=== PATIENT | male | born 1955 | race Caucasian/White ===

== ENCOUNTER 2020-12-14 18:18 | Emergency (ER) | payer OTHER, SELFPAY ==
[2020-12-14 18:20] VITALS: BP 142/90; PULSE 115; RESP 16; TEMP 36.8; O2SAT 98; BMI 18.3
[2020-12-14] MEDS: morphine 10 MG/ML Syringe 5 MG IM (19:07)
[2020-12-14] MEDS: Ondansetron ODT 4 MG Tablet PO (19:08)
--- NOTE | 2020-12-14 19:19 | RAD_ITS ---
INDICATION: back pain EXAMINATION/TECHNIQUE: X-RAY - XR Spine Lumbar 2 or 3 Views COMPARISON: None. FINDINGS: VERTEBRAE: Preserved vertebral body height. No fracture. No spondylolisthesis. Preservation of the normal lumbar lordosis. Moderate multilevel facet arthropathy. Partially visualized posterior fusion hardware at T10. DISCS: Moderate multilevel degenerative disease and spondylosis. INCLUDED ABDOMEN: Included bowel gas pattern is non-obstructive. RAD/Lumbar Spine 2 or 3 Views IMPRESSION: No evidence of lumbar spinal fracture or spondylolisthesis. Moderate multilevel degenerative disc disease and spondylosis. Electronically Signed: Omar Weinberg MD at 19:38 EDT Tel , Service support ,
--- NOTE | 2020-12-14 19:36 | EDS_ITS ---
HPI History of Present Illness Chief Complaint: Back Narrative Narrative: 65-year-old male presenting with back pain. He states is an acute on chronic issue. He has muscle relaxers at home. [facility] and has had [facility] previously. He states that these are just worn off and he is in between appointments. [facility]. Denies loss of bladder or bowel control denies urinary retention. Denies saddle paresthesia. Patient ambulatory. [facility] Medical History Back pain Emphysema lung Social History Smoking Status: Current every day smoker tobacco type: cigarettes ROS ROS ED Constitutional Constitutional ED: Denies chills, fever(s) or sweats Eyes Eyes: Denies blurry vision or change in vision ENT ENT ED: Denies ear pain or sore throat Cardiovascular Cardiovascular: Denies chest pain, palpitations or racing heartbeat Respiratory/Chest Respiratory/Chest: Denies cough, dyspnea or sputum Gastrointestinal Gastrointestinal: Denies abdominal pain, constipation, diarrhea, nausea or vomiting Genitourinary Genitourinary ED: Denies dysuria, hematuria or urinary frequency Musculoskeletal Musculoskeletal: Reports back pain; Denies arthralgias, myalgias or neck pain Integumentary Denies abscess, Abrasions or rash Neurologic Neurologic: Denies headache(s), paresthesias or weakness Psychiatric Psychiatric: Denies anxiety, depression, suicidal ideation or suicidal thoughts Endocrine Endocrinology: Denies polydipsia or polyuria EXAM Physical Exam Const Vital Signs: 12/14/20 18:20 Temperature 98.2 F Temperature Source Temporal Pulse Rate 115 H Respiratory Rate 16 Blood Pressure 142/90 H Blood Pressure Mean 107 Pulse Ox 98 Oxygen Delivery Method Room Air Positive well nourished and unkempt General Appearance ED: unkempt HEENT Negative for trauma Eyes PERRL Resp normal respiratory effort and clear to auscultation bilaterally Cardio regular rate and regular rhythm Back/Spine normal to inspection and no thoracic nor lumbar tenderness Back/Spine Narrative: Left lumbar paraspinal musculature tenderness. There is tenderness to palpation of left gluteal region. Neuro oriented x3 Sensorium / Orientation: alert Psych mental status grossly normal Appearance: unkempt Skin no rashes or lesions noted and no wounds MDM MDM MDM Narrative Medical decision making narrative: Presenting with acute on chronic back pain. I did obtain imaging of the lumbar spine which shows no acute fracture or subluxation. Patient does have multilevel degenerative changes on my interpretation. Radiologist does agree. Patient was given morphine IM as well as Zofran. His pain is well controlled. I did rehabilitation services counselor him that given his chronic nature of pain in his back he should [facility] who is been doing [facility]. I do not feel that he needs narcotics at this time. He does state that he has muscle relaxers at home and is feeling very comfortable currently. Impression: 1. Lumbar strain acute on chronic Radiography Diagnostic Testing: Radiology Impression Lumbar Spine X-Ray 12/14/20 19:19 IMPRESSION: No evidence of lumbar spinal fracture or spondylolisthesis. Moderate multilevel degenerative disc disease and spondylosis. Electronically Signed: Omar Weinberg MD at 19:38 EDT Tel , Service support , Discharge Plan Triage Chief Complaint: Back ED Provider: Mayur Briggs Dx/Rx/DC Orders Instructions: ED Back Sprain/Strain [facility] [[facility] Provider[facility] - Disposition Disposition: Home, Self Care
--- NOTE | 2020-12-14 20:20 | ED.RN ---
pt has discharge papers available. explained to pt that he need to have his ride here that he cant drive himself after having the morphine. pr insists that he is going to go smoke. ambulated out of department despite ratonales walked down the ramp to his care where he got his cigarettes and come back up the ramp to sit on the bench and wait for his sim. calling with not success at this time. pt refusing to come back into the ed but insists he will not drive self.
== END 2020-12-14 20:23 | disposition home or self-care (01) ==
PROVIDERS: Emergency Provider Student in an Organized Health Care Education/Training Program
DX: S39.012A Strain of muscle, fascia and tendon of lower back, initial encounter (principal); F17.210 Nicotine dependence, cigarettes, uncomplicated; X58.XXXA Exposure to other specified factors, initial encounter
CPT/HCPCS: 72100; 96372; 99282

== ENCOUNTER 2021-05-12 11:04 | Emergency (ER) | payer OTHER, SELFPAY ==
[2021-05-12 11:04] VITALS: BP 148/90; PULSE 102; RESP 16; TEMP 36.5; O2SAT 97; BMI 18.3
--- NOTE | 2021-05-12 11:37 | ED.VIS.BACK ---
HPI History of Present Illness Chief Complaint: Back Informant: patient Onset/Context/Timing Onset: Days (3) Context: Gradual Onset Injury: lifting Timing: Continuous Quality: Sharp and - (Stabbing) Location: Lumbar, Buttock and Left Leg Worsened by: improves with Movement and Ambulation Relieved by: Nothing Narrative Narrative: Patient presents with back pain that has been getting worse over the past 3 days. Patient states he was lifting a heavy tote and started having pain in his low back ever since. Patient states it goes down his left lower extremity. Patient describes the pain is sharp and stabbing. Patient states it is worse with certain movements. Patient states nothing seems to help. Patient states he has been unable to bear weight due to the pain in his back. Patient states the pain radiates into his abdomen. Patient denies any dysuria or hematuria. Patient denies any incontinence of stool or urine. [facility] Medical History (Updated 05/12/21 @ 13:[address] Ozzie Salcido DO) Back pain Emphysema lung Home Medications hydrocodone-acetaminophen 1 tab PO Q6H PRN PRN 3 Days #10 tablet 05/12/21 [Rx Last Taken Unknown] Allergy/AdvReac Type Severity Reaction Status Date / Time No Known Allergies Allergy Verified 05/12/21 11:09 Surgical History (Updated 05/12/21 @ 11:[address] Ozzie Salcido DO) History of lumbar fusion History of thoracic spinal fusion S/P cervical spinal fusion Social History Smoking Status: Current every day smoker tobacco type: cigarettes ROS ROS ED Constitutional Constitutional ED: Denies chills or fever(s) Eyes Eyes: Denies blurry vision or change in vision ENT ENT ED: Denies rhinorrhea or sore throat Cardiovascular Cardiovascular: Reports chest pain; Denies palpitations Respiratory/Chest Respiratory/Chest: Reports dyspnea; Denies cough Gastrointestinal Gastrointestinal: Reports nausea; Denies vomiting Genitourinary Genitourinary ED: Denies dysuria or hematuria Musculoskeletal Musculoskeletal: Reports back pain; Denies neck pain Integumentary Denies abscess or rash Neurologic Neurologic: Denies headache(s) or weakness Allergic/Immunologic Allergic/Immunologic ED: Denies mouth swelling or urticaria EXAM Physical Exam Const Vital Signs: 05/12/21 11:04 Temperature 97.7 F L Temperature Source Oral Pulse Rate 102 H Respiratory Rate 16 Blood Pressure 148/90 H Blood Pressure Mean 109 Pulse Ox 97 Oxygen Delivery Method Room Air Positive well nourished and well developed General Appearance ED: well developed HEENT Reports moist mucous membranes Neck supple and no JVD Back/Spine Back/Spine Narrative: There is tenderness over the lower lumbar spine and left paraspinal muscles. There is no bony crepitance or step-off. There is no edema or ecchymosis. Range of motion was limited in all motions of the lumbar spine secondary to pain. There is also some tenderness over the posterior aspect of the left hip and buttock area. Lumbar Spine / Lower Back: ROM limited and straight leg raise negative bilaterally Neuro oriented x3 and no sensory deficits noted Sensorium / Orientation: alert Motor Exam: strength 5/5 throughout Psych mental status grossly normal MDM MDM MDM Narrative Medical decision making narrative: Patient was given a dose of morphine here. X-rays of the lumbar spine were obtained. There are 3 views. On my interpretation, there are degenerative changes. There is no acute fracture or spondylolisthesis. Radiologist also interpreted the x-rays and agrees. X-rays of the pelvis were obtained. There is 1 view. On my interpretation, there is no acute fracture or dislocation. There are degenerative changes noted. Radiologist also interpreted the x-ray and agrees. Patient initially had some difficulty ambulating. However, with a walker he was able to ambulate better. Patient was given a prescription for a short course of [place]. Patient was instructed use ice to his low back. Patient was instructed to follow-up with his primary care physician in 3 to 5 days. Patient understood and was agreeable with the plan. All questions were answered. Radiography X-Ray: LS SPine, Read by ED Physician, Read by Radiologist, No Fracture, Normal Bony Alignment and DJD Diagnostic Testing: Clinical Impression(s) from Imaging Studies Lumbar Spine X-Ray 05/12/21 12:30 IMPRESSION: 1. No acute fracture or subluxation. 2. Mild dextroscoliosis with diffuse degenerative disc disease. Electronically Signed: Tony Fleming MD at 13:23 EST Tel , Service support , Pelvis X-Ray 05/12/21 12:30 IMPRESSION: Age consistent degenerative changes, no acute findings Electronically Signed: Callum Lau MD at 13:33 EST , Service support , Discharge Plan Triage Chief Complaint: Back ED Provider: Ozzie Salcido Dx/Rx/DC Orders Clinical Impression: Acute low back pain Instructions: ED Back Pain (Acute or Chronic) Prescriptions: New hydrocodone-acetaminophen [hydrocodone-acetaminophen] 1 TABLET tablet 1 tab PO Q6H PRN PRN (Reason: Pain) 3 Days Qty: 10 RF: 0 [facility] - 3-5 Days Disposition Disposition: Home, Self Care
--- NOTE | 2021-05-12 12:30 | RAD_ITS ---
STUDY: X-RAY - PELVIS REASON FOR EXAM: Male, 66 years old. Injury/Pain TECHNIQUE: One view of the pelvis was obtained. COMPARISON: None. FINDINGS: There is a non-specific bowel gas pattern. Normal visualized soft tissue structures. There is narrowing with cortical sclerosis and osteophyte formation of the sacroiliac joint consistent with degenerative osteoarthritic changes. Normal visualized bilateral superior and inferior pubic rami. Normal pubic symphysis. Normal ischial tuberosities. Normal visualized right femoral head. Normal right acetabulum. There is mild articular joint space narrowing of the right hip. Normal visualized left femoral head. Normal left acetabulum. There is mild articular joint space narrowing of the left hip. RAD/Pelvis 1 or 2 Views IMPRESSION: Age consistent degenerative changes, no acute findings Electronically Signed: Callum Lau MD at 13:33 EST , Service support ,
--- NOTE | 2021-05-12 12:30 | RAD_ITS ---
STUDY: X-RAY - LUMBAR SPINE REASON FOR EXAM: Male, 66 years old. Injury/Pain TECHNIQUE: 3 view(s) of the lumbar spine were obtained. COMPARISON: 12/14/2020 FINDINGS: Normal lumbar lordosis. Mild dextroscoliosis centered at L2/L3. There is a normal alignment of the vertebrae. There is multilevel endplate spondylosis of the lumbar vertebrae. There is multi-level degenerative disc disease with multi-level disc space narrowing. The soft tissue structures are unremarkable. RAD/Lumbar Spine 2 or 3 Views IMPRESSION: 1. No acute fracture or subluxation. 2. Mild dextroscoliosis with diffuse degenerative disc disease. Electronically Signed: Tony Fleming MD at 13:23 EST Tel , Service support ,
[2021-05-12] MEDS: Morphine 4 MG/ML Syringe IM (12:44)
== END 2021-05-12 15:36 | disposition home or self-care (01) ==
PROVIDERS: Emergency Provider Emergency Medicine; Visit Provider Emergency Medicine
DX: M54.50 Low back pain, unspecified (principal); F17.210 Nicotine dependence, cigarettes, uncomplicated
CPT/HCPCS: 72100; 72170; 96372; 99284

== ENCOUNTER 2021-06-17 09:32 | Outpatient (CLI) | payer OTHER, SELFPAY ==
--- NOTE | 2021-06-17 09:38 | US_ITS ---
STUDY: ABDOMINAL ULTRASOUND - RIGHT UPPER QUADRANT REASON FOR VISIT: Male, 66 years old ELEVATED LFT''S TECHNIQUE: Ultrasound evaluation of the right upper quadrant was performed with real-time and static brian-scale imaging. TECHNICAL QUALITY: Adequate. COMPARISON: None. FINDINGS: Liver: The liver measures 17.3 cm. There is normal echogenicity of the liver. The bile ducts are within normal limits. There is hepatic color flow. The direction of portal flow is hepatopetal. There is no demonstrated mass lesion. Gallbladder: Normal distended gallbladder. The gallbladder wall measures 2 mm. There is a negative sonographic Lopez''s sign. There is no pericholecystic fluid. There are no gallstones. Common Bile Duct (C.B.D.): The common bile duct measures 3 mm. Pancreas: Normal size of the head, body and tail of the pancreas. There is normal echogenicity of the pancreas. There is no demonstrated pancreatic mass or cyst. Right Kidney: Normal size of the right kidney. The right kidney measures 10.9 cm x 5.5 cm x 4.2 cm. Normal renal cortex. The right cortex measures 1.2 cm. There is no demonstrated renal mass or cyst. There is no right hydronephrosis. US/Abdomen Limited IMPRESSION: Normal right upper quadrant ultrasound examination. Electronically Signed: Marlon Rothman MD at 14:43 EST ,
== END 2021-06-17 23:59 | disposition home or self-care (01) ==
PROVIDERS: Referring Provider Nurse Practitioner; Visit Provider Nurse Practitioner
DX: F10.10 Alcohol abuse, uncomplicated (principal); R79.89 Other specified abnormal findings of blood chemistry; R53.1 Weakness
CPT/HCPCS: 76705

== ENCOUNTER 2021-09-03 16:01 | Inpatient (IN) | payer OTHER, SELFPAY ==
[2021-09-03] VITALS (12 sets, daily range): BP systolic 84–120; BP diastolic 63–107; PULSE 109–166; RESP 16–38; TEMP 35.8–36.7; O2SAT 96–100; BMI 16.9; BMI 17.2
--- NOTE | 2021-09-03 16:28 | EKG12_ITS ---
Test Reason : CP Blood Pressure : / mmHG Vent. Rate : 146 BPM Atrial Rate : 146 BPM P-R Int : 128 ms QRS Dur : 136 ms QT Int : 320 ms P-R-T Axes : 000 -15 068 degrees QTc Int : 498 ms Wide complex tachycardia: Consider Atrial Flutter with 2:1 AV conduction Right bundle branch block Abnormal ECG Confirmed by DILMA HOLDER, ABE ([id number]), editor managing newspaper MARCY MILLER ([id number]) on 09/05/2021 10:12:44 AM Referred By: Confirmed By:ABE PERERA MD
--- NOTE | 2021-09-03 16:28 | RAD_ITS ---
STUDY: X-RAY XR Forearm 2 Views REASON FOR EXAM: Male, 66 years old. PAIN TECHNIQUE: XR Forearm 2 Views COMPARISON: None. FINDINGS: There is no demonstrated soft tissue swelling. Normal visualized radius. Normal visualized ulna. RAD/Forearm 2 Views IMPRESSION: Normal x-ray examination of the radius and ulna. Electronically Signed: Alin Mitchell MD at 17:13 EDT ,
--- NOTE | 2021-09-03 16:30 | EKG12_ITS ---
Test Reason : TACHYCARDIA Blood Pressure : / mmHG Vent. Rate : 114 BPM Atrial Rate : 114 BPM P-R Int : 156 ms QRS Dur : 146 ms QT Int : 340 ms P-R-T Axes : 046 068 068 degrees QTc Int : 468 ms Sinus tachycardia with Premature atrial complexes Right bundle branch block Abnormal ECG Confirmed by DILMA HOLDER, ABE ([id number]), film or videotape editor MARCY MILLER ([id number]) on 09/05/2021 10:13:04 AM Referred By: LALA Confirmed By:ABE PERERA MD
--- NOTE | 2021-09-03 16:31 | EDS_ITS ---
HPI History of Present Illness Chief Complaint: Dizziness Detail of Chief Complaint: Also right forearm pain. Informant: patient Onset/Context/Timing Onset: Yesterday Context: Sudden Onset Timing: Continuous Current Severity: Mild Maximum Severity: Moderate Narrative Narrative: 66-year-old male history of COPD, feet neuropathy prior stroke left- sided weakness. He denies any cardiac disease or stents. No bypass. States yesterday was outside with his dog is a great [place] and saw a squirrel pulled him pulled the leash and he went down injuring his right forearm. He has not been evaluated for this until today. He also states has been having intermittent lightheadedness. Denies any chest pain. Said he has not had any episodes where he is passed out. Prior similar symptoms: No Recent Illness/Hospitalization: No PFSH PFSH Medical History Alcohol abuse Back pain COPD (chronic obstructive pulmonary disease) HLD (hyperlipidemia) Stroke/cerebrovascular accident Tobacco use Home Medications hydrocodone-acetaminophen 1 tab PO Q6H PRN PRN 3 Days #10 tablet 05/12/21 [Rx Last Taken Unknown] Allergy/AdvReac Type Severity Reaction Status Date / Time No Known Allergies Allergy Verified 09/03/21 16:04 Family History (Updated 09/03/21 @ 18:[address] Miranda Nichols MD) Mother Heart disease Hypertension Father Heart disease Hypertension Family History unable to obtain Surgical History (Updated 09/03/21 @ 18:[address] Miranda Nichols MD) History of lumbar fusion History of thoracic spinal fusion Hx of tonsillectomy S/P cervical spinal fusion Social History (Updated 09/03/21 @ 18:[address] Miranda Nichols MD) household members: none Smoking Status: Current every day smoker tobacco type: cigarettes Smoking packs per day: 0.5 Smoking cigarettes per day: 10.0 alcohol intake: current alcohol intake frequency: 3 or more drinks per day details: 1/2 pint whiskey daily. substance use type: marijuana and other details: Patient vapes CBD ROS ROS ED ROS Narrative Lightheadedness. Fall with right forearm pain. Review of Systems ROS Unobtainable: Denies due to encephalopathy Constitutional Constitutional ED: Denies fever(s) Eyes Eyes: Denies change in vision ENT ENT ED: Denies ear pain Cardiovascular Cardiovascular: Reports palpitations and racing heartbeat; Denies chest pain Respiratory/Chest Respiratory/Chest: Denies cough or dyspnea Gastrointestinal Gastrointestinal: Denies abdominal pain, diarrhea, nausea or vomiting Genitourinary Genitourinary ED: Denies dysuria Musculoskeletal Musculoskeletal: Denies myalgias Integumentary Denies rash Neurologic Neurologic: Denies headache(s) Psychiatric Psychiatric: Denies depression Endocrine Endocrinology: Denies polyuria Allergic/Immunologic Allergic/Immunologic ED: Denies urticaria EXAM Physical Exam Narrative Exam Narrative: 61-year-old male no acute distress vital signs stable afebrile. Initial blood pressure 120/107. This tachycardia 144. On the monitor it appears to be a sinus tachycardia rate of 146 with a right bundle branch block. There is a wide-complex tachycardia. This could be A. fib or flutter. It is less likely to be like a slow V. tach. H EENT exam unremarkable. Neck nontender. Lungs clear to auscultation. Tachycardia rate about 145 on the monitor. Appears to be regular. No murmur appreciated. Chest were nontender. Abdomen soft nontender. Moving all 4 extremities. He has abrasions to the dorsum of his right forearm no deformity but his entire right forearm is tender. He can flex and extend the elbow and the wrist. He has normal pc tech strength and radial pulse of his right hand. Shoulder is nontender. Left upper and both lower extremities are nontender. Back nontender. Neurologically is awake and alert. He has weakness on the left side subtly compared to the right from a prior stroke. Const Vital Signs: 09/03/21 16:02 09/03/21 16:36 09/03/21 16:37 Temperature 96.5 F L Temperature Source Temporal Pulse Rate 144 H Respiratory Rate 20 H Respiratory Effort Normal Respiratory Pattern Normal Blood Pressure 120/107 H Blood Pressure Mean 111 Pulse Ox Oxygen Delivery Method Room Air Room Air 09/03/21 17:13 09/03/21 18:00 Temperature Temperature Source Pulse Rate 166 H 129 H Respiratory Rate 23 H 22 H Respiratory Effort Respiratory Pattern Blood Pressure 84/64 L 106/75 Blood Pressure Mean 70 85 Pulse Ox 96 97 Oxygen Delivery Method Room Air Room Air Positive well nourished and well developed; Negative for obese, cachectic, contractures or unkempt General Appearance ED: well developed and NAD; Negative for unkempt, cachectic, contractures, cyanotic or diaphoretic Nutritional Appearance: Negative for cachectic or obese HEENT Reports moist mucous membranes Negative for trauma or tenderness Eyes PERRL and EOMs intact bilaterally Neck no lymphadenopathy, supple and no JVD General: Negative for tenderness Chest Wall inspection of chest normal and palpation of chest normal Resp normal respiratory effort and clear to auscultation bilaterally Auscultation: Negative for rales, rhonchi or wheezes Cardio regular rhythm and no murmurs; Negative for regular rate Rate: tachycardic GI normal to inspection, nondistended, normoactive bowel sounds, non-tender, non- distended and no masses Auscultation: normoactive bowel sounds Palpation: soft; Negative for tender, guarding or rebound tenderness present Back/Spine no CVA tenderness General Back: Negative for CVA tenderness Extremity normal to inspection General Extremety ED: Negative for edema or tenderness General Extremity: Negative for edema Neuro oriented x3, CN's II-XII intact bilaterally and No no sensory deficits noted Neuro Narrative: Left-sided weakness. Mild from prior stroke. Sensorium / Orientation: alert Motor Exam: strength abnormal; Negative for strength 5/5 throughout Psych mental status grossly normal Appearance: Negative for unkempt Mood & Affect: Negative for depressed or tearful Skin no rashes or lesions noted and No no wounds Skin Narrative: Abrasions dorsum right forearm. MDM MDM MDM Narrative Medical decision making narrative: 86-year-old male fall complaining of right forearm pain which will x-ray. There is no deformity. My bigger concern is patient presents a tachycardia around 144 that could be new onset atrial flutter or A. fib or SVT or even slow V. tach. He will be given Identicard to see if we can better identify the rhythm. He has no history of any abnormal cardiac rhythm. EKG is most likely atrial flutter with interventricular conduction delay. I did discuss this with the junior underwriter who reviewed EKG also. I attempted to cardiovert the patient and with sedating him with etomidate. He was initially cardioverted with 300 J and then 360 with really no change whatsoever. He tolerated procedure well. His vital signs remained stable on any has had episodes of hypotension. He is receiving a liter of IV fluids and if his pressures above 100 I am to give him Cardizem IV 20 mg slow push. He is going to be admitted to the PCU this is all been discussed with the hospitalist. Lab Data Attestation: I reviewed the patient's lab results. Lab results narrative: CBC shows a white count of 15. H&H of 15 and 45. Platelets 163. PT/INR 14 and 1. Sodium 128. Gap of 18 BUN and creatinine of 41 and 1.72. Troponin slightly elevated at 92. Labs: Laboratory Results - last 24 hr 09/03/21 09/03/21 09/03/21 16:10 16:10 16:10 WBC 15.0 H RBC 4.37 L Hgb 15.9 Hct 45.3 MCV 103.7 H MCH 36.4 H MCHC 35.1 RDW Std Deviation 56.7 H RDW Coeff of Jesse 14.8 H Plt Count 163 MPV 11.8 Immature Gran % (Auto) [employer] Neut % (Auto) [employer] Lymph % (Auto) [employer] [place] % (Auto) [employer] Eos % (Auto) [employer] Baso % (Auto) [employer] Absolute Neuts (auto) 12.2 H Absolute Lymphs (auto) 1.35 Total Counted [employer] Neutrophils % (Manual) 32 L Band Neutrophils % 49 H Lymphocytes % (Manual) 9 L Monocytes % (Manual) 5 Metamyelocytes % 5 H Nucleated RBC % [employer] Diff Path Review May foll Platelet Estimate ADEQUATE RBC Morphology NORM C+C PT 14.5 INR 1.2 Sodium 128 L Potassium 4.0 Chloride 90 L Carbon Dioxide 20.0 L Anion Gap 18 H BUN 41 H Creatinine 1.72 H Estim Creat Clear Calc 34.34 Est GFR (MDRD) Af Amer 52 L Est GFR (MDRD) Non-Af 43 L BUN/Creatinine Ratio 23.8 H Glucose 113 H Calcium 9.4 Troponin I High Sens 09/03/21 16:10 WBC RBC Hgb Hct MCV MCH MCHC RDW Std Deviation RDW Coeff of Jesse Plt Count MPV Immature Gran % (Auto) Neut % (Auto) Lymph % (Auto) [place] % (Auto) Eos % (Auto) Baso % (Auto) Absolute Neuts (auto) Absolute Lymphs (auto) Total Counted Neutrophils % (Manual) Band Neutrophils % Lymphocytes % (Manual) Monocytes % (Manual) Metamyelocytes % Nucleated RBC % Diff Path Review Platelet Estimate RBC Morphology PT INR Sodium Potassium Chloride Carbon Dioxide Anion Gap BUN Creatinine Estim Creat Clear Calc Est GFR (MDRD) Af Amer Est GFR (MDRD) Non-Af BUN/Creatinine Ratio Glucose Calcium Troponin I High Sens 92 H Radiography Chest X-Ray - ED: 1 View Diagnostic Testing: Clinical Impression(s) from Imaging Studies Forearm X-Ray 09/03/21 16:28 IMPRESSION: Normal x-ray examination of the radius and ulna. Electronically Signed: lAin Mitchell MD at 17:13 EDT , Chest X-Ray 09/03/21 16:42 IMPRESSION: There are no acute findings. Electronically Signed: Alin Mitchell MD at 17:15 EDT , Right forearm x-ray 2 views interpreted myself and radiologist shows no acute abnormality. Chest x-ray portable, single view, interpreted myself and radiology shows no acute abnormalities. Normal cardiac silhouette. Rhythm Strip Rhythm Strip: Tachycardia Rate: 146 Ectopy: None EKG Initial EKG: Attestation: I personally reviewed and interpreted this EKG as follows: Interpretation: No Acute Injury Pattern Comments: Tachycardia with a right bundle branch block. Could be a possible atrial flutter or fib with a right bundle branch block. No old EKG available. Critical Care Time Critical Care Time: Yes Critical care time (excluding procedures): 30-74 minutes, Including time spent:, Discussing w/Patient &/or Family/Punchboard Stuffer, Discussing w/Consultants, Arranging Admission or Transfer, Performing Direct Patient Care at Bedside and - (33 min) Discharge Plan Dx/Rx/DC Orders Clinical Impression: Fall, Contusion of forearm, right, Tachycardia, Acute hypotension, Atrial flutter with rapid ventricular response Disposition Disposition: [facility]
[2021-09-03] MEDS: Adenosine 6 MG/2 ML Syringe IV (16:41)
--- NOTE | 2021-09-03 16:42 | RAD_ITS ---
STUDY: X-RAY CHEST REASON FOR EXAM: Male, 66 years old. CHEST PAIN chest pain TECHNIQUE: XR Chest 1 View COMPARISON: Prior comparison studies are not available for review at this time. FINDINGS: There is no demonstrated pleural abnormality. There is a left sided electronic device. Cervical spinal fusion hardware placement. Thoracic spinal fusion hardware. Normal size heart. Normal mediastinum and agustina. Normal visualized pulmonary arteries. There is atherosclerotic calcification of the aortic arch with tortuosity. There are diffuse degenerative changes of the visualized thoracic spine. There is degenerative osteoarthritis of the bilateral shoulders. There is no demonstrated abnormality of the visualized soft tissue structures of the upper abdomen. RAD/Chest 1 View (Portable) IMPRESSION: There are no acute findings. Electronically Signed: Alin Mitchell MD at 17:15 EDT ,
[2021-09-03 17:09] LABS: Hematocrit 45.3 % (40-54); Hemoglobin 15.9 g/dL (13.0-16.5); Mean Corp Hgb Conc 35.1 g/dL (32-36); Mean Corpuscular Hgb 36.4 pg (27.0-32.0); Mean Corpuscular Volume 103.7 fL (80-94); Mean Platelet Vol. 11.8 fl (6.2-12.0); POSITIVE DIFFERENTIAL YES; POSITIVE MORPHOLOGY YES; Platelet Count 163 K/mm3 (150-450); RBC Distribution Width CV 14.8 % (11.6-14.6); RBC Distribution Width SD 56.7 fl (35.1-43.9); Red Blood Count 4.37 M/mm3 (4.6-6.2)
[2021-09-03 17:13] LABS: International Normalized Ratio 1.2; Prothrombin Time (Protime)PT. 14.5 SECONDS (11.7-14.9)
[2021-09-03 17:15] LABS: Anion Gap 18 (5-15); BUN 41 mg/dL (7-18); BUN/Creat Ratio 23.8 RATIO (10-20); Calcium,Total 9.4 mg/dL (8.5-10.1); Chloride 90 mmol/L (98-107); Creatinine, Serum 1.72 mg/dL (0.70-1.30); EST Glomerular Filtration Rate 43 mL/min (>60); Est Glom Filt Rate - Afr Amer 52 mL/min (>60); Estimated Creatinine Clearance 34.34 ml/min; Glucose 113 mg/dL (74-106); Sodium Level 128 mmol/L (136-145)
[2021-09-03 17:26] LABS: Troponin-I HS (w/2H Reflex) 92 pg/mL (3.0-78.0)
--- NOTE | 2021-09-03 17:57 | PCM.HP.STD ---
Documented by User: WENDY Mendes 09/03/21 18:26 HPI - General General Date of Admission: 09/03/21 Date of Service: 09/03/21 Chief Complaint: Presyncope HPI Narrative NNEKA TIRADO, is a 66 M who presents with complaints of lightheadedness but denies any syncope. Patient reports that he had a stroke approximately 6 months ago and has had some left-sided weakness since but is otherwise felt fine until the past couple of weeks. Patient follows with [facility] [place] and is currently undergoing a 14-day Holter monitor as follow-up testing for his stroke. Patient reports that he has a history of high cholesterol and knows that he is on some medication for my heart but I do not know what it is or why I am on it. Patient reports many back surgeries as his only surgical history. In the ER patient is noted to be in atrial flutter with an accelerated rate in the 120s as well as slightly hypotensive however this is responded well to fluid boluses. PFSH Medical History Alcohol abuse Back pain COPD (chronic obstructive pulmonary disease) HLD (hyperlipidemia) Stroke/cerebrovascular accident Tobacco use Home Medications hydrocodone-acetaminophen 1 tab PO Q6H PRN PRN 3 Days #10 tablet 05/12/21 [Rx Last Taken Unknown] Allergy/AdvReac Type Severity Reaction Status Date / Time No Known Allergies Allergy Verified 09/03/21 16:04 Family History (Updated 09/03/21 @ 18:[address] Miranda Nichols MD) Mother Heart disease Hypertension Father Heart disease Hypertension Family History unable to obtain unable to obtain (Patient is unaware of family history) Surgical History (Updated 09/03/21 @ 18:[address] Miranda Nichols MD) History of lumbar fusion History of thoracic spinal fusion Hx of tonsillectomy S/P cervical spinal fusion Social History (Updated 09/03/21 @ 18:[address] Miranda Nichols MD) household members: none Smoking Status: Current every day smoker tobacco type: cigarettes Smoking packs per day: 0.5 Smoking cigarettes per day: 10.0 alcohol intake: current alcohol intake frequency: 3 or more drinks per day details: 1/2 pint whiskey daily. substance use type: marijuana and other details: Patient vapes CBD ROS Constitutional Constitutional: Denies anorexia, chills, fatigue, fever(s), malaise or weakness Cardiovascular Cardiovascular: Reports arrhythmia on telemetry, dizziness, lightheadedness and syncope; Denies chest pain, edema or palpitations Respiratory/Chest Respiratory/Chest: Denies cough, shortness of breath at rest, shortness of breath with exertion or wheezing Gastrointestinal Gastrointestinal: Denies abdominal pain, constipation, diarrhea, nausea or vomiting Genitourinary Genitourinary: Denies dysuria Musculoskeletal Musculoskeletal: Denies back pain, extremity pain, joint pain, joint stiffness or joint swelling Integumentary Integumentary: Denies dry skin Neurologic Neurologic: Denies abnormal gait, abnormal speech, confusion or dizziness Psychiatric Psychiatric: Denies anxiety or depression Endocrine Endocrinology: Denies change in body appearance Hematologic/Lymphatic Hematologic/Lymphatic: Denies anemia or easy bleeding Vital Signs Vital Signs Vital Signs: 09/03/21 16:02 09/03/21 16:36 09/03/21 16:37 Temperature 96.5 F L Temperature Source Temporal Pulse Rate 144 H Respiratory Rate 20 H Respiratory Effort Normal Respiratory Pattern Normal Blood Pressure 120/107 H Blood Pressure Mean 111 Pulse Ox Oxygen Delivery Method Room Air Room Air 09/03/21 17:13 Temperature Temperature Source Pulse Rate 166 H Respiratory Rate 23 H Respiratory Effort Respiratory Pattern Blood Pressure 84/64 L Blood Pressure Mean 70 Pulse Ox 96 Oxygen Delivery Method Room Air Weight Weight: 125 lb 0.034 oz Body Mass Index (BMI) 16.9 Physical Exam Const alert, oriented x3 and no apparent distress General Appearance: cooperative HEENT normocephalic and head/scalp atraumatic Eyes conjunctivae normal and no scleral icterus Neck supple and thyroid normal General: trachea midline Resp normal respiratory effort and normal air movement Auscultation: diminished lung sounds Cardio S1 normal heart sound, S2 normal heart sound and peripheral pulses 2+ throughout Rate: tachycardic Rhythm: abnormal rhythm regularly irregular GI normal to inspection, nondistended, normoactive bowel sounds, soft to palpation and non-tender Extremity normal capillary refill and no clubbing, cyanosis or edema General Extremity: no tenderness to palpation of joints or extremities Skin General Skin Exam: no breakdown and turgor normal Lesions: no lesions Rashes: no rashes Neuro no focal motor deficits and no sensory deficits noted Motor Exam: Negative for general weakness Psych thought process normal, cooperative and affect normal Appearance: appropriate Results Lab / Micro Data Result Diagrams: 09/03/21 16:10 09/03/21 16:10 Labs: Laboratory Results - last 24 hr 09/03/21 16:10: WBC 15.0 H, RBC 4.37 L, Hgb 15.9, Hct 45.3, MCV 103.7 H, MCH 36.4 H, MCHC 35.1, RDW Std Deviation 56.7 H, RDW Coeff of Jesse 14.8 H, Plt Count 163, MPV 11.8, Immature Gran % (Auto) 0.700, Neut % (Auto) 94.1 H, Lymph % (Auto) 2.3 L, [place] % (Auto) 2.7, Eos % (Auto) 0.1, Baso % (Auto) 0.1, Absolute Neuts (auto) 14.1 H, Absolute Lymphs (auto) 0.35 L, Nucleated RBC % 0 09/03/21 16:10: Sodium 128 L, Potassium 4.0, Chloride 90 L, Carbon Dioxide 20.0 L, Anion Gap 18 H, BUN 41 H, Creatinine 1.72 H, Estim Creat Clear Calc 34.34, Est GFR (MDRD) Af Amer 52 L, Est GFR (MDRD) Non-Af 43 L, BUN/Creatinine Ratio 23.8 H, Glucose 113 H, Calcium 9.4 09/03/21 16:10: PT 14.5, INR 1.2 09/03/21 16:10: Troponin I High Sens 92 H Rhythm Strip Rhythm Strip: Tachycardia Rate: 146 Ectopy: None Radiology Impression Forearm X-Ray 09/03/21 16:28 IMPRESSION: Normal x-ray examination of the radius and ulna. Electronically Signed: Alin Mitchell MD at 17:13 EDT , Chest X-Ray 09/03/21 16:42 IMPRESSION: There are no acute findings. Electronically Signed: Alin Mitchell MD at 17:15 EDT , Assessment & Plan Assessment/Plan (1) Atrial flutter with rapid ventricular response: (2) Acute hypotension: PLAN: 1. Atrial flutter with RVR with right bundle branch block -Admit to PCU -Maintain patient's outpatient Holter monitor -Trend cardiac enzymes initial level of 92 -Cardiac diet -Daily weights -Patient was given adenosine 6 mg IV x1 without improvement of rate or symptoms. Patient will undergo cardioversion attempt in ER -PT and OT to eval -CBC, CMP, magnesium, phosphorus, TSH ordered for a.m. -Echocardiogram ordered for a.m. -We will order appropriate medications as needed following results of cardioversion -We will initiate patient on Eliquis and aspirin 2. Hyponatremia -Normal saline ordered in ER and will continue -Repeat CMP in a.m. 3. Acute kidney injury versus chronic kidney disease -Patient states that he thinks his kidney function is fine -Will trend CMP -Normal saline ordered 4. Hyperlipidemia -Initiated patient on atorvastatin, patient unaware of what medications he takes at home 5. Substance abuse -Patient reports that he drinks half of a pint of whiskey per day -We will check hepatic panel -thiamine, folic acid, multivitamin ordered 6. Tobacco abuse -Patient reports that he continues to smoke half pack per day -Inpatient smoking cessation ordered 7. COPD -Continue albuterol as needed nebulizer treatments as well as scheduled budesonide -Encourage incentive spirometry DVT prophylaxis-initiated on Eliquis for atrial flutter This patient was seen by Sandie York NP-C under the supervision of Dr. Nichols. 32 minutes spent in clinical coordination of patient's plan of care. Documented by User: Dr. Miranda Nichols MD 09/03/21 18:29 PFSH Medical History Alcohol abuse Back pain COPD (chronic obstructive pulmonary disease) HLD (hyperlipidemia) Stroke/cerebrovascular accident Tobacco use Home Medications hydrocodone-acetaminophen 1 tab PO Q6H PRN PRN 3 Days #10 tablet 05/12/21 [Rx Last Taken Unknown] Allergy/AdvReac Type Severity Reaction Status Date / Time No Known Allergies Allergy Verified 09/03/21 16:04 Family History (Updated 09/03/21 @ 18:[address] Miranda Nichols MD) Mother Heart disease Hypertension Father Heart disease Hypertension Family History unable to obtain Surgical History (Updated 09/03/21 @ 18:[address] Miranda Nichols MD) History of lumbar fusion History of thoracic spinal fusion Hx of tonsillectomy S/P cervical spinal fusion Social History (Updated 09/03/21 @ 18:[address] Miranda Nichols MD) household members: none Smoking Status: Current every day smoker tobacco type: cigarettes Smoking packs per day: 0.5 Smoking cigarettes per day: 10.0 alcohol intake: current alcohol intake frequency: 3 or more drinks per day details: 1/2 pint whiskey daily. substance use type: marijuana and other details: Patient vapes CBD Results Lab / Micro Data Result Diagrams: 09/03/21 16:10 09/03/21 16:10
[2021-09-03 17:59] LABS: Lymphocyte 9 % (19-41); Metamyelocyte 5 % (0-1); Monocyte 5 % (0-10); Neutrophil-Band 49 % (0-5); Neutrophil-Segmented 32 % (47-70)
[2021-09-03 18:00] LABS: Platelet Estimate ADEQUATE (ADEQ); Red Cell Morphology NORM C+C NORMAL (NORM C&C)
[2021-09-03 18:02] LABS: Differential Indicated MANUAL DIFF
[2021-09-03 18:04] LABS: Absolute Neutrophil Count 12.2 X10^3/uL (2.0-7.7)
[2021-09-03 18:05] LABS: Absolute Lymphocyte Count 1.35 X10^3/uL (0.83-4.51)
[2021-09-03] MEDS: Etomidate 20 MG/10 ML Vial IV (18:32)
[2021-09-03 18:49] LABS: AST(SGOT) 60 U/L (15-37); Alanine Aminotransfer ALT/SGPT 38 U/L (16-61); Albumin, Serum 2.8 g/dL (3.2-5.0); Alkaline Phosphatase 56 U/L (45-117); Bilirubin, Direct 0.35 mg/dL (0.00-0.30); Globulin 4.4 g/dL (2.2-4.2); Protein, Total 7.2 g/dL (6.4-8.2); Reflex Troponin-HS? (from REC) Y
[2021-09-03] MEDS: dilTIAZem 25 MG/5 ML Vial 20 MG IV BOLUS (18:56)
[2021-09-03 19:52] LABS: Troponin-I HS 214 pg/mL (3.0-78.0)
[2021-09-03] MEDS: 0.9% Normal Saline 1,000 ML 125 ML IV (19:52)
[2021-09-03] MEDS: Budesonide Respules 0.5 MG/2 ML AMPUL.NEB. INHALATION (20:30)
--- NOTE | 2021-09-03 20:31 | EKG12_ITS ---
Test Reason : Blood Pressure : / mmHG Vent. Rate : 125 BPM Atrial Rate : 125 BPM P-R Int : 160 ms QRS Dur : 132 ms QT Int : 322 ms P-R-T Axes : 079 053 058 degrees QTc Int : 464 ms Sinus tachycardia with Premature atrial complexes Right bundle branch block Abnormal ECG Confirmed by DILMA HOLDER, ABE ([id number]), continuity editor MARCY MILLER ([id number]) on 09/05/2021 10:36:02 AM Referred By: KENY Confirmed By:ABE PERERA MD
--- NOTE | 2021-09-03 20:58 | PCM.CONS.C ---
Assessment & Plan Assessment/Plan (1) Atrial flutter with rapid ventricular response: PLAN: The patient was found to have a wide-complex tachycardia. Based upon evaluation there was concern this was atrial flutter with 2 1 AV conduction with an underlying right bundle branch block pattern. The patient has been treated medically as described above. At the present time based upon the patient's cardiac rhythm strip it appears that he may be remaining in an underlying sinus rhythm/sinus tachycardia with frequent PACs. At the moment he should continue rate control therapy. Consideration could be given to the addition of antiarrhythmic therapy and attempt to maintain sinus rhythm. He should also be considered for anticoagulant therapy to minimize the risk of cardiac dysrhythmia related thromboembolic disease especially in light of his history of CVA unless otherwise contraindicated. With respect to antiarrhythmic therapy it may be reasonable to consider based upon the patient's unknown cardiovascular status at this time agents such as amiodarone therapy unless otherwise contraindicated. The patient should also discontinue his tobacco intake as well as his alcohol intake which potentially could be contributing factors to his overall cardiovascular conditions including his atrial dysrhythmia. (2) Abnormal cardiac enzyme level: PLAN: The patient does have abnormal cardiac enzyme levels which may represent a type II event secondary to his tachycardia and his synchronized biphasic DC cardioversion. However be reasonable to further evaluate the patient for other underlying cardiovascular disease. This would include a transthoracic echocardiogram to evaluate left ventricular wall motion and systolic function. It would also include a pharmacologic stress nuclear imaging study to evaluate for any obvious evidence of myocardial ischemia that would warrant further evaluation and care. (3) HLD (hyperlipidemia): PLAN: The patient states he has a history of hyperlipidemia and does take lipid-lowering medication. He is unclear as to which medication he takes. It appears based upon his overall condition to be reasonable to not only evaluate his lipids but consider lipid-lowering therapy with a statin. (4) CVA (cerebral vascular accident): PLAN: The patient has a report of a CVA. He is currently wearing a [facility] event monitor. An attempt will be made to retrieve additional information from the event monitor which may help with his overall evaluation and care. However, noting that it appears he has an underlying atrial dysrhythmia that could be a thromboembolic generator, it is reasonable to continue his medical management as described above. (5) COPD (chronic obstructive pulmonary disease): PLAN: The patient has a history of COPD. He has been counseled on the need to discontinue his tobacco intake. Addt'l Comments The patient will also be evaluated by utilization review/social media director with respect to the need, as the [facility] patient, to be transferred to the [facility] for additional evaluation and care. The patient's case has been discussed and reviewed with the patient and Dr. Kennedy from the [facility] emergency department staff. This note was generated using a voice recognition system and there may be incorrect words, spelling or punctuation that were not noted when reviewing the office note prior to saving. HPI Consult Data Date of Consult: 09/03/21 HPI Narrative HPI Narrative: NNEKA TIRADO, is a 66 year old white male who presents for vascular consultation based upon concerns of an underlying tachycardia appearing compatible with an underlying atrial flutter with 2 1 AV conduction with an underlying right bundle branch block pattern superimposed upon a history of previous CVA. The patient states he was evaluated at the [facility] earlier this year for concerns of a CVA. He states recently, as part of his evaluation, he received a 14-day event monitor to wear-which she is currently wearing as part of his ongoing evaluation. He states he may have felt somewhat lightheaded but did not lose consciousness. He subsequently experienced a fall with concern of right upper extremity discomfort. He states this occurred as he was pulled over by his dog. He subsequently presented to the emergency department for evaluation of his right upper extremity. He was noted to have an elevated heart rate and on ECG appeared to have an underlying wide-complex tachycardia which appeared concerning for an underlying atrial flutter with a 2-1 AV conduction with a right bundle branch block pattern. He underwent additional evaluation in the emergency department. He was treated with IV adenosine and attempt to help identify and interrupt his tachycardia. However this was reported as unsuccessful. As he was noted to be hypotensive he subsequently underwent further evaluation/therapy with synchronized biphasic DC cardioversion. This was reported as 300 J x 1 and then 360 J x 1 with continued concerns of his underlying tacky dysrhythmia. He was then treated with additional medical therapy with IV fluids and IV diltiazem. He was then transferred to the PCU for further evaluation. He denies any ongoing chest discomfort. He states he is chronically short of breath and dyspneic. He denies any sensation of palpitations or rapid heart rate. He has had no near-syncope or syncope. He does not recall undergoing cardiovascular evaluation at the [facility]. He states while living in [place] in the past he believes he had a stress test but does not recall ever going through a diagnostic cardiac catheterization. In the PCU he is being monitored. On his telemetry recordings there is the appearance of an underlying sinus tachycardia with frequent PACs with a right bundle branch block pattern. The patient does admit to continued tobacco use and continued alcohol intake (approximately a pint of whiskey per day). He has had cardiac enzymes performed. His troponin I level was elevated at 92 and subsequently status post his synchronized biphasic DC cardioversion has elevated to 214. He is also noted to have elevation of his BUN and creatinine level at 41 and 1.27. His baseline ECG appeared to demonstrate the concern of a wide-complex tachycardia concerning for atrial flutter with 2 1 AV conduction with a right bundle branch block pattern. His chest x-ray was reported as no acute changes. There are no other cardiovascular diagnostic studies available for review at this time. [facility] Medical History Abnormal cardiac enzyme level Alcohol abuse Back pain COPD (chronic obstructive pulmonary disease) CVA (cerebral vascular accident) HLD (hyperlipidemia) Stroke/cerebrovascular accident Tobacco use Allergy/AdvReac Type Severity Reaction Status Date / Time No Known Allergies Allergy Verified 09/03/21 16:04 Family History (Updated 09/03/21 @ 18:[address] Miranda Nichols MD) Mother Heart disease Hypertension Father Heart disease Hypertension Family History unable to obtain Surgical History (Updated 09/03/21 @ 18:[address] Miranda Nichols MD) History of lumbar fusion History of thoracic spinal fusion Hx of tonsillectomy S/P cervical spinal fusion Social History (Updated 09/03/21 @ 18:[address] Miranda Nichols MD) household members: none Smoking Status: Current every day smoker tobacco type: cigarettes Smoking packs per day: 0.5 Smoking cigarettes per day: 10.0 alcohol intake: current alcohol intake frequency: 3 or more drinks per day details: 1/2 pint whiskey daily. substance use type: marijuana and other details: Patient vapes CBD ROS Constitutional Constitutional: Reports as per HPI Eyes Eyes: Reports as per HPI ENT HEENT: Reports as per HPI Cardiovascular Cardiovascular: Reports lightheadedness Respiratory/Chest Respiratory/Chest: Reports dyspnea Gastrointestinal Gastrointestinal: Reports as per HPI Genitourinary Genitourinary: Reports as per HPI Musculoskeletal Musculoskeletal: Reports extremity pain Integumentary Integumentary: Reports as per HPI Neurologic Neurologic: Reports as per HPI Psychiatric Psychiatric: Reports as per HPI Physical Exam Const alert, oriented x3 and no apparent distress General Appearance: other Somewhat cachectic appearing Orientation / Consciousness: awake HEENT normocephalic, head/scalp atraumatic and hearing grossly normal bilaterally Eyes PERRL, EOMs intact bilaterally and conjunctivae normal Neck full ROM, supple and no JVD Resp clear to auscultation bilaterally Cardio regular rhythm, S1 normal heart sound and S2 normal heart sound Rhythm: abnormal rhythm ectopic beats GI normal to inspection, nondistended, normoactive bowel sounds Extremity no pedal edema Skin Skin Narrative: Right upper extremity General Skin Exam: ecchymosis Neuro oriented x3 and moves all extremities Psych mental status grossly normal Risk Stratification Risk Stratification Applicable: Yes Age >/= 65: Yes >/= 3 CAD Risk Factors (HTN, HLD, DM, family hx of CAD, or current smoker): No Aspirin Use in the Past 7 Days: No Severe Angina (>/= episodes in 24 hours): No EKG ST Changes >/= 0.5mm: No Positive Cardiac Marker: Yes HUNTER Risk Stratification Score: 2 HUNTER % Risk: 8% Risk Objective Data Vital Signs: Vital Signs Temp Pulse Resp BP Pulse Ox 97.2 F L 125 H 16 106/63 99 09/03/21 19:35 09/03/21 20:32 09/03/21 20:32 09/03/21 19:35 09/03/21 20:35 Oxygen Flow Rate (L/min) [6] 6 Oxygen Flow Rate (L/min) [5] 6 Oxygen Flow Rate (L/min) [4] 6 Oxygen Flow Rate (L/min) [3] 6 Oxygen Flow Rate (L/min) [2] 6 Oxygen Flow Rate (L/min) 6 Oxygen Delivery Method [6] Nasal Cannula Oxygen Delivery Method [5] Nasal Cannula Oxygen Delivery Method [4] Nasal Cannula Oxygen Delivery Method [3] Nasal Cannula Oxygen Delivery Method [2] Nasal Cannula Oxygen Delivery Method Room Air Weight: 126 lb 12.253 oz Body Mass Index (BMI) 17.2 Lab / Micro Data Result Diagrams: 09/03/21 16:10 09/03/21 16:10 Labs: Laboratory Results - last 24 hr 09/03/21 16:10: WBC 15.0 H, RBC 4.37 L, Hgb 15.9, Hct 45.3, MCV 103.7 H, MCH 36.4 H, MCHC 35.1, RDW Std Deviation 56.7 H, RDW Coeff of Jesse 14.8 H, Plt Count 163, MPV 11.8, Immature Gran % (Auto) [employer]IOR [employer]LECT[employer] DESIGN ENGINEER, Neut % (Auto) SENIOR ELECT[employer]ICAL DESIGN ENGINEER, Lymph % (Auto) SENIOR ELECTRICAL DESIGN ENGINEER, [place] % (Auto) SENIOR ELECTRICAL DESIGN ENGINEER, Eos % (Auto) SENIOR ELECTRICAL DESIGN ENGINEER, Baso % (Auto) SENIOR ELECTRICAL DESIGN ENGINEER, Absolute Neuts (auto) 12.2 H, Absolute Lymphs (auto) 1.35, Total Counted SENIOR ELECTRICAL DESIGN ENGINEER, Neutrophils % (Manual) 32 L, Band Neutrophils % 49 H, Lymphocytes % (Manual) 9 L, Monocytes % (Manual) 5, Metamyelocytes % 5 H, Nucleated RBC % SENIOR ELECTRICAL DESIGN ENGINEER, Diff Path Review September, Platelet Estimate ADEQUATE, RBC Morphology NORM C+C 09/03/21 16:10: Sodium 128 L, Potassium 4.0, Chloride 90 L, Carbon Dioxide 20.0 L, Anion Gap 18 H, BUN 41 H, Creatinine 1.72 H, Estim Creat Clear Calc 34.34, Est GFR (MDRD) Af Amer 52 L, Est GFR (MDRD) Non-Af 43 L, BUN/Creatinine Ratio 23.8 H, Glucose 113 H, Calcium 9.4 09/03/21 16:10: PT 14.5, INR 1.2 09/03/21 16:10: Troponin I High Sens 92 H 09/03/21 16:10: Total Bilirubin 0.90, Direct Bilirubin 0.35 H, AST 60 H, ALT 38, Alkaline Phosphatase 56, Total Protein 7.2, Albumin 2.8 L, Globulin 4.4 H 09/03/21 19:00: Troponin I High Sens 214 H* Rhythm Strip Rhythm Strip: Tachycardia Rate: 146 Ectopy: None Cardiology Labs/Tests 09/03/21 16:10: WBC 15.0 H, RBC 4.37 L, Hgb 15.9, Hct 45.3, MCV 103.7 H, MCH 36.4 H, MCHC 35.1, Plt Count 163, MPV 11.8, Immature Gran % (Auto) SENIOR ELECTRICAL DESIGN ENGINEER, Neut % (Auto) SENIOR ELECTRICAL DESIGN ENGINEER, Lymph % (Auto) SENIOR ELECTRICAL DESIGN ENGINEER, [place] % (Auto) SENIOR ELECTRICAL DESIGN ENGINEER, Eos % (Auto) SENIOR ELECTRICAL DESIGN ENGINEER, Baso % (Auto) SENIOR ELECTRICAL DESIGN ENGINEER, Absolute Neuts (auto) 12.2 H, Total Counted SENIOR ELECTRICAL DESIGN ENGINEER, Neutrophils % (Manual) 32 L, Band Neutrophils % 49 H, Lymphocytes % (Manual) 9 L, Monocytes % (Manual) 5, Metamyelocytes % 5 H, Nucleated RBC % SENIOR ELECTRICAL DESIGN ENGINEER 09/03/21 16:10: Sodium 128 L, Potassium 4.0, Chloride 90 L, Carbon Dioxide 20.0 L, Anion Gap 18 H, BUN 41 H, Creatinine 1.72 H, Est GFR (MDRD) Af Amer 52 L, Est GFR (MDRD) Non-Af 43 L, BUN/Creatinine Ratio 23.8 H, Glucose 113 H, Calcium 9.4 09/03/21 16:10: PT 14.5, INR 1.2 09/03/21 16:10: Total Bilirubin 0.90, Direct Bilirubin 0.35 H Rhythm: As noted above EKG: As noted above Radiography Diagnostic Testing: Radiology Impression Forearm X-Ray 09/03/21 16:28 IMPRESSION: Normal x-ray examination of the radius and ulna. Electronically Signed: Alin Mitchell MD at 17:13 EDT , Chest X-Ray 09/03/21 16:42 IMPRESSION: There are no acute findings. Electronically Signed: Alin Mitchell MD at 17:15 EDT ,
[2021-09-03] MEDS: APIXABAN 2.5 MG TABLET PO (21:40)
[2021-09-03] MEDS: Metoprolol Tartrate 25 MG Tablet PO (21:40)
[2021-09-03] MEDS: Atorvastatin Calcium 20 MG Tablet PO (21:40)
[2021-09-03 23:21] LABS: Troponin-I HS 696 pg/mL (3.0-78.0)
--- NOTE | 2021-09-03 23:21 | PCM.HOSP.N ---
Hospitalist Note Notified by Romy JOE that patient's third troponin 696 up from 214. Initial troponin was 92 in the ER. Troponin 2 and 3 were obtained following patient's unsuccessful cardioversion in ER so does not surprising that troponin has continued to elevate. We will continue to trend troponins at this time. Patient initiated on aspirin and Eliquis therapy upon admission. Cardiology consulted and case initially discussed with Dr. Lang by Dr. Kennedy in ER.
[2021-09-04] VITALS (12 sets, daily range): BP systolic 64–106; BP diastolic 44–65; PULSE 115–155; RESP 22–39; TEMP 36.7–37.3; O2SAT 94–99
[2021-09-04] MEDS: 0.9% Normal Saline 1,000 ML 999 ML IV ×2 (00:31→02:28)
[2021-09-04 03:04] LABS: Absolute Lymphocyte Count 0.06 X10^3/uL (0.83-4.51); Absolute Neutrophil Count 5.9 X10^3/uL (2.0-7.7); Basophil# 0.01 X10^3/uL; Basophil% 0.2 % (0-1); Eosinophil# 0.03 X10^3/uL; Eosinophils% 0.5 % (0-5); Hematocrit 33.1 % (40-54); Hemoglobin 12.1 g/dL (13.0-16.5); Lymphocyte # 0.06 X10^3/ul (0.83-4.51); Mean Corp Hgb Conc 36.6 g/dL (32-36); Mean Corpuscular Hgb 35.3 pg (27.0-32.0); Mean Corpuscular Volume 96.5 fL (80-94); Monocyte# 0.29 X10^3/uL; Monocyte% 4.6 % (0-10); NRBC Flagged by Analyzer 0.3 % (0-5); Neutrophil # 5.89 X10^3/uL (2.7-7.7); Neutrophil % 93.4 % (47-70); POSITIVE COUNT YES; POSITIVE DIFFERENTIAL YES; POSITIVE MORPHOLOGY YES; Platelet Count 97 K/mm3 (150-450); RBC Distribution Width CV 14.1 % (11.6-14.6); RBC Distribution Width SD 49.8 fl (35.1-43.9); Red Blood Count 3.43 M/mm3 (4.6-6.2); White Blood Count 6.3 K/mm3 (4.4-11.0)
[2021-09-04 03:06] LABS: Differential Indicated SCAN CRITERIA MET
[2021-09-04 03:19] LABS: Color, Urine Yellow (Yellow); Glucose, Dipstick Normal (Normal); Ketone-Dipstick 5 mg/dl (Negative); Leukocyte Esterase-Dipstick 25 /ul (Negative); Nitrite-Dipstick Negative (Negative); Occult Blood-Urine 250 /ul (Negative); Protein-Dipstick 30 mg/dl (Negative); Urine Bilirubin Dipstick 1 mg/dL (Negative); Urine Clarity Clear (Clear); Urine Urobilinogen 1 mg/dl (Normal)
[2021-09-04 03:25] LABS: Bedside Glucose 93 mg/dL (74-106)
[2021-09-04 03:25] LABS: Bacteria 2+ /hpf (None Seen); Hyaline Cast 0-5 SEEN /lpf (0-5); Mucous, Urine 1+ /hpf (<or=2+); Red Blood Cells-Urine 0-5 SEEN /hpf (0-5); Squamous Epithelial Cells - UA 0-5 SEEN /hpf (0-5); White Blood Cells 0-5 SEEN /hpf (0-5)
[2021-09-04 03:32] LABS: Differential Comment SCANNED
[2021-09-04 03:40] LABS: ALB/GLOB Ratio 0.6 RATIO (0.9-2.4); AST(SGOT) 115 U/L (15-37); Alanine Aminotransfer ALT/SGPT 41 U/L (16-61); Albumin, Serum 2.1 g/dL (3.2-5.0); Alkaline Phosphatase 37 U/L (45-117); Anion Gap 11 (5-15); BUN 38 mg/dL (7-18); BUN/Creat Ratio 38.7 RATIO (10-20); Calcium,Total 7.5 mg/dL (8.5-10.1); Chloride 99 mmol/L (98-107); Creatinine, Serum 0.98 mg/dL (0.70-1.30); EST Glomerular Filtration Rate 81 mL/min (>60); Est Glom Filt Rate - Afr Amer 98 mL/min (>60); Estimated Creatinine Clearance 61.12 ml/min; Globulin 3.4 g/dL (2.2-4.2); Glucose 87 mg/dL (74-106); Magnesium 1.6 mg/dL (1.6-2.6); Phosphorus 3.1 mg/dL (2.5-4.9); Potassium 3.5 mmol/L (3.5-5.1); Protein, Total 5.5 g/dL (6.4-8.2); Sodium Level 130 mmol/L (136-145)
[2021-09-04 03:44] LABS: Troponin-I HS 3106 pg/mL (3.0-78.0)
--- NOTE | 2021-09-04 04:13 | PCM.PN.BLA ---
Progress Note We will start patient on amiodarone drip without bolus with A. fib with RVR. Of note patient has had episodes of hypotension. Also patient was started on Eliquis 2.5 mg twice daily for history of stroke and A. fib. Eliquis as it is too early in patient's admission and unclear whether patient will need any percutaneous work-up at this time. We will start patient on heparin at the next dose that Eliquis would have been due. Will place magnesium and potassium. Of note urinalysis showed 2+ bacteria. There is conflicting information as to whether patient has any urinary symptoms. Nurse reported patient was bladder scanned for 0 mL of urine. Earlier on it was reported that patient was having some difficulty in urination. Later on it was reported that has no urinary symptoms. Considering overall clinical picture will start patient on ceftriaxone. His troponin is trending up. Repeat another troponin.
[2021-09-04] MEDS: Magnesium Sulfate 4gm/100mL 4 GM/100 ML IV.SOLN. IV (04:24)
[2021-09-04] MEDS: Potassium Chloride Oral Tablet 20 MEQ 40 MEQ PO (04:33)
[2021-09-04] MEDS: Budesonide Respules 0.5 MG/2 ML AMPUL.NEB. INHALATION (04:41)
--- NOTE | 2021-09-04 05:30 | NURSING ---
Pt sister notified of change in status, Pt sister states she did not know he was even in hospital. Pt then advised of Dr Light pronouncing her brother . Sister states she doesn't know what his wishes are, or where his family is. His ex lives at the same mobile home park, bet she doesnt have any contact information. His ex name Carmelita Story.
--- NOTE | 2021-09-04 05:46 | EXP.PCM_ITS ---
Preliminary Cause of Preliminary Cause of Preliminary Cause of : Myocardial infarction Principle Diagnosis Problem List: Active CVA (cerebral vascular accident) (Acute) Abnormal cardiac enzyme level (Acute) Atrial flutter with rapid ventricular response (Acute) Fall (Acute) Contusion of forearm, right (Acute) Tachycardia (Acute) Acute hypotension (Acute) Myocardial infarction Hospital Course Patient with a significant history of CVA, EtOH Abuse, Tobacco use, COPD, Anxiety and Depression/Suspected PTSD who presents reported to the emergency department with lightheadedness and fall. In the ER patient is noted to be in atrial flutter with an accelerated rate in the 120s as well as slightly hypotensive. He was cardioverted at the emergency and received IV fluids. His troponin was elevated and a troponin followed arising because. Patient was admitted to progressive care unit where he was seen by emergency generator mechanic and was started on metoprolol. Also patient received Eliquis the patient continued to be hypotensive. His troponin continued to increase. He was in A. fib with RVR noticed on telemetry and confirmed by twelve-lead EKG. He received further IV fluid boluses. He was started on amiodarone drip without a bolus. Patient lost his pulse and was not breathing. ACLS protocol was initiated. Patient did not achieve ROSC. Patient was pronounced on 09/04/2021 at 0 527. Patient was physically examined. Patient had no heart sounds or lung sounds. Patient had no pulse. Patient had no corneal reflex. Patient was pronounced . Date of . Time of Immediate cause of (final disease of condition resulting in ): Myocardial infarction duration: Days/month/years: 1 day Listed conditions leading to cause of (due to or as a consequence of) : Coronary artery disease Day/month/years: Years Listed other significant conditions contributing to but not resulting in the underlying cause of : Alcoholism; hyperlipidemia Did tobacco contribute to : Yes Visit Charges Inpatient E&M: 80788 Disch Hosp
--- NOTE | 2021-09-04 05:55 | EKG12_ITS ---
Test Reason : Blood Pressure : / mmHG Vent. Rate : 138 BPM Atrial Rate : 131 BPM P-R Int : 000 ms QRS Dur : 132 ms QT Int : 324 ms P-R-T Axes : 000 052 062 degrees QTc Int : 490 ms Atrial fibrillation Right bundle branch block Abnormal ECG Confirmed by DILMA HOLDER, ABE ([id number]), supervising editor news reel MARCY MILLER ([id number]) on 09/05/2021 10:35:47 AM Referred By: KENY Confirmed By:ABE PERERA MD
--- NOTE | 2021-09-04 06:03 | NURSING ---
Pt c/o shortness of breath, respiratory called for breathing tx. HR elevated, amio gtt and mag started after orders. RN TRANSITION in room to start IV. Pt still c/o SOB, unable to obtain an accurate pulse ox reading. MD notified, order given for respiratory to get an ABG. MD also notified regarding elevated lactic 3.0. Dr. Light to floor to assess pt, respiratory in room. Pt agonally breathing, code blue called.
--- NOTE | 2021-09-04 06:14 | PCM.CODE.SUM ---
Code Blue Report Code Blue Summary Code Blue Summary: While hospitalized was in patient room patient lost his pulse and was breathing. ACLS protocol with defibrillation; epinephrine; magnesium and bicarbonate given. After several rounds of CPR patient could not achieve ROSC. Code was called of and patient was pronounced on 09/04/2021 at 0 527.
--- NOTE | 2021-09-04 06:48 | CPS ---
RT called to bedside by RN to get an ABG on this patient. Upon RT arrival to bedside the patient was observed with the nasal cannula out of his nose with SpO2 of 66% on the pulse ox. RT asked the patient if we could put the oxygen back in his nose and he responded with Kev thorne. This patient's face color was extremely pale as were his lips. It became evident to RT that this patient was rapidly deteriorating. Physician arrived at bedside and also observed the patient in this condition. Due to the patient's breathing and respiratory status RT asked physician for permission to initiate BIPAP. The physician agreed to this therapy and RT left bedside to get a BIPAP. Upon RT coming back to bedside with the BIPAP the physician was attempting to provide CPR to this patient and asked RT to call a code blue. RT called a code blue and began assisting the physician further with the code at this time.
[2021-09-04 06:59] LABS: Reflex Lactate? Y
[2021-09-07 20:46] LABS: Pathologist Review Reviewed
== END 2021-09-04 10:28 ==
LOC: ED 18:16 → PCU 09-04 06:52
PROVIDERS: Nurse Practitioner Family; Admitting Provider Family Medicine; Emergency Provider Emergency Medicine; Visit Provider Internal Medicine
DX: I21.9 Acute myocardial infarction, unspecified (principal); E43 Unspecified severe protein-calorie malnutrition; E87.1 Hypo-osmolality and hyponatremia; I48.92 Unspecified atrial flutter; N17.9 Acute kidney failure, unspecified; I47.1 Supraventricular tachycardia; I69.354 Hemiplegia and hemiparesis following cerebral infarction affecting left non-dominant side; Z68.1 Body mass index [BMI] 19.9 or less, adult; I95.9 Hypotension, unspecified; I25.10 Atherosclerotic heart disease of native coronary artery without angina pectoris; I48.91 Unspecified atrial fibrillation; J44.9 Chronic obstructive pulmonary disease, unspecified; N18.30 Chronic kidney disease, stage 3 unspecified; E78.5 Hyperlipidemia, unspecified; S50.11XA Contusion of right forearm, initial encounter; W18.30XA Fall on same level, unspecified, initial encounter; Y93.K1 Activity, walking an animal; F10.10 Alcohol abuse, uncomplicated; F43.10 Post-traumatic stress disorder, unspecified; F32.A Depression, unspecified; F41.9 Anxiety disorder, unspecified; F17.210 Nicotine dependence, cigarettes, uncomplicated; Z79.82 Long term (current) use of aspirin; Z79.01 Long term (current) use of anticoagulants
CPT/HCPCS: 31500; 36415; 71045; 73090; 80048; 80053; 80076; 81001; 82962; 83605; 83735; 84100; 84443; 84484; 85025; 85610; 87040; 87077; 87186; 92950; 92960; 93005; 94640; 99152; 99284; 99406; J7030; A4216; J0153; J3475